=== PATIENT | female | born 1965 | race Caucasian/White ===

== ENCOUNTER 2022-03-13 12:39 | Inpatient (IN) | payer OTHER ==
[2022-03-13 13:37] VITALS: BMI 25.8
[2022-03-13] MEDS ORDERED: ACETAMINOPHEN 325 MG TABLET (FP) PO PRN ×2 (14:06)
[2022-03-13] MEDS ORDERED: IBUPROFEN 400 MG TABLET (FP) PO PRN (14:06)
[2022-03-13] MEDS ORDERED: MAGNESIUM CITRATE 300 ML BOTTLE PO PRN (14:06)
[2022-03-13] MEDS ORDERED: MAGNESIUM HYDROX 2400MG/30ML ORAL SUSPENSION 30 ML CUP PO PRN (14:06)
[2022-03-13] MEDS ORDERED: MAG HYDROX/AL HYDROX/SIMETH 30 ML UNIT-DOSE CUP PO PRN (14:06)
[2022-03-13] MEDS ORDERED: ONDANSETRON *ODT* 4 MG TABLET SL PRN (14:06)
[2022-03-13] MEDS ORDERED: LOPERAMIDE HCL 2 MG CAPSULE PO PRN (14:06)
[2022-03-13] MEDS ORDERED: DICYCLOMINE HCL 10 MG CAPSULE PO PRN (14:06)
[2022-03-13] MEDS ORDERED: IBUPROFEN 600 MG TABLET (FP) PO PRN (14:06)
[2022-03-13] MEDS ORDERED: BISMUTH SUBSALICYLATE 524 MG/30 ML PO PRN (14:06)
[2022-03-13] MEDS ORDERED: BENZOCAINE/MENTHOL (CHLORASEPTIC ) LOZENGE MM PRN (14:06)
[2022-03-13] MEDS: hydrOXYzine PAMOATE 25 MG CAPSULE (FP) PO SCH ×2 (17:58→22:16)
[2022-03-13] MEDS: METHOCARBAMOL 500 MG TABLET PO PRN (17:59)
[2022-03-13] MEDS ORDERED: SERTRALINE HCL 50 MG TABLET (FP) PO ONE ×2 (18:01→22:00)
[2022-03-13] MEDS: traZODone HCL 50 MG TABLET (FP) PO SCH (22:16)
[2022-03-13] MEDS: MELATONIN 5 MG TABLETS PO SCH (22:16)
[2022-03-13] MEDS: THIAMINE HCL 100 MG TABLET (FP) PO SCH (22:17)
[2022-03-14] MEDS: hydrOXYzine PAMOATE 25 MG CAPSULE (FP) PO SCH ×5 (06:53→22:22)
[2022-03-14] MEDS ORDERED: chlordiazePOXIDE HCL 25 MG CAPSULE PO PRN (10:11)
[2022-03-14] MEDS: SERTRALINE HCL 50 MG TABLET (FP) PO SCH (10:25)
[2022-03-14] MEDS: PRENATAL VITAMINS W/ FOLIC ACID TABLET (FP) PO SCH (10:25)
[2022-03-14] MEDS: chlordiazePOXIDE HCL 25 MG CAPSULE PO SCH ×3 (10:26→22:22)
[2022-03-14] MEDS: NICOTINE 10 MG CARTRIDGE (INHALER) IH PRN (10:29)
[2022-03-14 10:44] LABS: HEMATOCRIT 40.8 % (32.4-45.2); HEMOGLOBIN 13.8 GM/dL (10.7-15.3); MCH 32.9 pg (25.7-33.7); MCHC 33.7 g/dl (32.0-36.0); MEAN CELL VOLUME 97.7 fl (80-96); MEAN PLT VOLUME 9.5 fl (7.5-11.1); PLATELET COUNT 231 10^3/uL (134-434); RBC 4.18 M/mm3 (3.60-5.2); RDW 14.2 % (11.6-15.6); WHITE BLOOD COUNT 6.2 K/mm3 (4.0-10.0)
[2022-03-14 10:47] LABS: ALBUMIN 4.4 g/dl (3.4-5.0); BLOOD UREA NITROGEN 13.5 mg/dL (7-18); CALCIUM 9.1 mg/dL (8.5-10.1)
[2022-03-14 10:51] LABS: BILIRUBIN,TOTAL 0.3 mg/dL (0.2-1); TOT PROT 7.5 g/dl (6.4-8.2)
[2022-03-14] MEDS ORDERED: PATIENT,S OWN MED:ALBUTEROL SO4 HFA INHALER IH PRN (14:43)
[2022-03-14] MEDS: ESTRADIOL TP SCH (15:05)
[2022-03-14] MEDS: traZODone HCL 50 MG TABLET (FP) PO SCH (22:22)
[2022-03-14] MEDS: traZODone HCL 100 MG TABLET (FP) PO SCH (22:22)
[2022-03-14] MEDS: MELATONIN 5 MG TABLETS PO SCH ×2 (22:22→22:28)
[2022-03-14] MEDS: THIAMINE HCL 100 MG TABLET (FP) PO SCH (22:22)
[2022-03-15] MEDS: chlordiazePOXIDE HCL 25 MG CAPSULE PO SCH ×4 (05:43→22:29)
[2022-03-15] MEDS: hydrOXYzine PAMOATE 25 MG CAPSULE (FP) PO SCH ×5 (05:43→22:30)
[2022-03-15] MEDS: PRENATAL VITAMINS W/ FOLIC ACID TABLET (FP) PO SCH (10:49)
[2022-03-15] MEDS: METHOCARBAMOL 500 MG TABLET PO PRN (10:52)
[2022-03-15] MEDS: SERTRALINE HCL 50 MG TABLET (FP) PO SCH (10:52)
[2022-03-15] MEDS: traZODone HCL 50 MG TABLET (FP) PO SCH (22:28)
[2022-03-15] MEDS: traZODone HCL 100 MG TABLET (FP) PO SCH (22:28)
[2022-03-15] MEDS: MELATONIN 5 MG TABLETS PO SCH (22:30)
[2022-03-15] MEDS: THIAMINE HCL 100 MG TABLET (FP) PO SCH (22:30)
[2022-03-16] MEDS: hydrOXYzine PAMOATE 25 MG CAPSULE (FP) PO SCH ×5 (06:10→22:11)
[2022-03-16] MEDS: chlordiazePOXIDE HCL 25 MG CAPSULE PO SCH ×4 (06:10→22:12)
[2022-03-16] MEDS: METHOCARBAMOL 500 MG TABLET PO PRN (10:16)
[2022-03-16] MEDS: SERTRALINE HCL 50 MG TABLET (FP) PO SCH (10:16)
[2022-03-16] MEDS: PRENATAL VITAMINS W/ FOLIC ACID TABLET (FP) PO SCH (10:16)
[2022-03-16] MEDS: NICOTINE 10 MG CARTRIDGE (INHALER) IH PRN (18:18)
[2022-03-16] MEDS: traZODone HCL 100 MG TABLET (FP) PO SCH (22:11)
[2022-03-16] MEDS: THIAMINE HCL 100 MG TABLET (FP) PO SCH (22:11)
[2022-03-16] MEDS: traZODone HCL 50 MG TABLET (FP) PO SCH (22:11)
[2022-03-17] MEDS ORDERED: chlordiazePOXIDE HCL 10 MG CAPSULE PO PRN
[2022-03-17] MEDS: MELATONIN 5 MG TABLETS PO SCH ×2 (00:19→22:24)
[2022-03-17] MEDS: hydrOXYzine PAMOATE 25 MG CAPSULE (FP) PO SCH ×5 (05:41→22:24)
[2022-03-17] MEDS: chlordiazePOXIDE HCL 10 MG CAPSULE PO SCH ×4 (05:42→22:24)
[2022-03-17] MEDS: METHOCARBAMOL 500 MG TABLET PO PRN (07:38)
[2022-03-17] MEDS: PRENATAL VITAMINS W/ FOLIC ACID TABLET (FP) PO SCH (10:17)
[2022-03-17] MEDS: SERTRALINE HCL 50 MG TABLET (FP) PO SCH (10:17)
[2022-03-17] MEDS: traZODone HCL 100 MG TABLET (FP) PO SCH (22:24)
[2022-03-17] MEDS: traZODone HCL 50 MG TABLET (FP) PO SCH (22:24)
[2022-03-17] MEDS: THIAMINE HCL 100 MG TABLET (FP) PO SCH (22:24)
[2022-03-18] MEDS ORDERED: chlordiazePOXIDE HCL 10 MG CAPSULE PO SCH (05:00)
[2022-03-18] MEDS: hydrOXYzine PAMOATE 25 MG CAPSULE (FP) PO SCH ×2 (05:49→09:46)
[2022-03-18 09:00] VITALS: BP 102/73; PULSE 65; TEMP 97.5
[2022-03-18] MEDS: SERTRALINE HCL 50 MG TABLET (FP) PO SCH (09:46)
[2022-03-18] MEDS: PRENATAL VITAMINS W/ FOLIC ACID TABLET (FP) PO SCH (09:46)
[2022-03-18] MEDS: ESTRADIOL TP SCH (10:32)
[2022-03-19] MEDS ORDERED: chlordiazePOXIDE HCL 10 MG CAPSULE PO ONE (05:00)
== END 2022-03-18 10:25 | disposition home or self-care (01) | DRG 774 ==
LOC: YASAS 12:39 → Y6N 15:43
PROVIDERS: ADMIT Allergy & Immunology; ATTEND Surgery
PROC: HZ2ZZZZ Detoxification Services for Substance Abuse Treatment (ICD-10-PCS; principal; 2022-03-13)
DX: F10.230 Alcohol dependence with withdrawal, uncomplicated (principal); F13.230 Sedative, hypnotic or anxiolytic dependence with withdrawal, uncomplicated; F14.20 Cocaine dependence, uncomplicated; F17.213 Nicotine dependence, cigarettes, with withdrawal; F34.1 Dysthymic disorder; J43.9 Emphysema, unspecified; Z90.710 Acquired absence of both cervix and uterus; Z88.8 Allergy status to other drugs, medicaments and biological substances
CPT/HCPCS: 36415; 71046-TC-FY; 80053; 81025; 82962; 85027; 86780; 93005; 93010; C9803-CS; U0003; U0005

== ENCOUNTER 2023-11-05 14:38 | Inpatient (IN) | payer OTHER ==
[2023-11-05 15:20] VITALS: BMI 28.3
[2023-11-05] MEDS ORDERED: ALBUTEROL SO4 HFA INHALER IH PRN (17:21)
[2023-11-05] MEDS ORDERED: P-EPHED 60MG/TRIPROLIDI 2.5MG TABLET PO PRN (17:31)
[2023-11-05] MEDS ORDERED: DICYCLOMINE HCL 10 MG CAPSULE PO PRN (17:31)
[2023-11-05] MEDS ORDERED: BENZONATATE 200 MG CAPSULE PO PRN (17:31)
[2023-11-05] MEDS ORDERED: guaiFENesin 600 MG TABLET.ER (FP) PO PRN (17:31)
[2023-11-05] MEDS ORDERED: ONDANSETRON *ODT* 4 MG TABLET SL PRN (17:31)
[2023-11-05] MEDS ORDERED: BENZOCAINE/MENTHOL (CHLORASEPTIC ) LOZENGE MM PRN (17:31)
[2023-11-05] MEDS ORDERED: POLYETHYLENE GLYCOL (HEALTHYLAX) 3350 17 GM PACKET PO PRN (17:31)
[2023-11-05] MEDS ORDERED: MAGNESIUM HYDROX 2400MG/30ML ORAL SUSPENSION 30 ML CUP PO PRN (17:31)
[2023-11-05] MEDS ORDERED: NICOTINE POLACRILEX 2 MG GUM BUC PRN (17:31)
[2023-11-05] MEDS ORDERED: NICOTINE POLACRILEX 2 MG LOZENGE BC PRN (17:31)
[2023-11-05] MEDS ORDERED: chlordiazePOXIDE HCL 25 MG CAPSULE ONE (17:51)
[2023-11-05] MEDS: chlordiazePOXIDE HCL 25 MG CAPSULE PO SCH (17:53)
[2023-11-05] MEDS: chlordiazePOXIDE HCL 25 MG CAPSULE PO PRN (19:40)
[2023-11-05] MEDS: METHOCARBAMOL 500 MG TABLET PO PRN (20:22)
[2023-11-05] MEDS: MELATONIN 5 MG TABLETS PO SCH (22:19)
[2023-11-05] MEDS: THIAMINE HCL 100 MG TABLET (FP) PO SCH (22:20)
[2023-11-06] MEDS: PRENATAL VITAMINS W/ FOLIC ACID TABLET (FP) PO SCH (10:20)
[2023-11-06 10:37] LABS: HEMATOCRIT 37.6 % (32.4-45.2); HEMOGLOBIN 13.1 GM/dL (10.7-15.3); MCH 33.6 pg (25.7-33.7); MCHC 34.9 g/dl (32.0-36.0); MEAN CELL VOLUME 96.3 fl (80-96); MEAN PLT VOLUME 9.1 fl (7.5-11.1); PLATELET COUNT 179 10^3/uL (134-434); RBC 3.91 M/mm3 (3.60-5.2); RDW 14.4 % (11.6-15.6); WHITE BLOOD COUNT 6.3 K/mm3 (4.0-10.0)
[2023-11-06 10:44] LABS: POTASSIUM 3.7 mmol/L (3.5-5.1)
[2023-11-06 10:51] LABS: CALCIUM 9.4 mg/dL (8.5-10.1)
[2023-11-06 10:52] LABS: BLOOD UREA NITROGEN 15.6 mg/dL (7-18)
[2023-11-06 10:54] LABS: CREATININE 0.9 mg/dL (0.55-1.3)
[2023-11-06 10:55] LABS: BILIRUBIN,TOTAL 0.4 mg/dL (0.2-1)
[2023-11-06 10:56] LABS: TOT PROT 6.8 g/dl (6.4-8.2)
[2023-11-06] MEDS: SERTRALINE HCL 50 MG TABLET (FP) PO SCH (15:04)
[2023-11-06] MEDS: LOPERAMIDE HCL 2 MG CAPSULE PO PRN (16:48)
[2023-11-06] MEDS: hydrOXYzine PAMOATE 25 MG CAPSULE (FP) PO PRN (16:49)
[2023-11-06] MEDS: ACETAMINOPHEN 325 MG TABLET (FP) PO PRN (16:49)
[2023-11-06] MEDS: traZODone HCL 100 MG TABLET (FP) PO SCH (22:47)
[2023-11-07] MEDS: BISMUTH SUBSALICYLATE 524 MG/30 ML PO PRN (06:08)
[2023-11-07] MEDS: chlordiazePOXIDE HCL 25 MG CAPSULE PO SCH (06:24)
[2023-11-07] MEDS: IBUPROFEN 400 MG TABLET (FP) PO PRN (17:42)
[2023-11-08] MEDS: chlordiazePOXIDE HCL 10 MG CAPSULE PO SCH (06:00)
[2023-11-08] MEDS: MAG HYDROX/AL HYDROX/SIMETH 30 ML UNIT-DOSE CUP PO PRN (13:44)
[2023-11-08] MEDS: chlordiazePOXIDE HCL 10 MG CAPSULE PO PRN (14:15)
[2023-11-09] MEDS: chlordiazePOXIDE HCL 10 MG CAPSULE PO SCH (05:33)
[2023-11-09 06:51] VITALS: RESP 18
[2023-11-09 13:17] VITALS: TEMP 98
[2023-11-09 13:19] VITALS: BP 111/72; PULSE 87
[2023-11-10 00:06] LABS: FIBROSIS SCORE. 0.09 (0.00-0.21); HCV ALPHA 2 MACRO CHART 151 mg/dL (110-276); NECRO.INFLAM ACT.SCORE 0.05 (0.00-0.17); NECROINFLAM. ACTIVITY GRADE A0-No activity (.)
[2023-11-10] MEDS ORDERED: chlordiazePOXIDE HCL 10 MG CAPSULE PO ONE (05:00)
== END 2023-11-09 14:45 | disposition home or self-care (01) | DRG 897 ==
LOC: YASAS 14:38 → Y6N 17:47
PROVIDERS: ADMIT Allergy & Immunology; ATTEND Surgery
PROC: HZ2ZZZZ Detoxification Services for Substance Abuse Treatment (ICD-10-PCS; principal; 2023-11-05)
DX: F10.230 Alcohol dependence with withdrawal, uncomplicated (principal); F14.20 Cocaine dependence, uncomplicated; F19.280 Other psychoactive substance dependence with psychoactive substance-induced anxiety disorder; F12.20 Cannabis dependence, uncomplicated; F17.210 Nicotine dependence, cigarettes, uncomplicated; F19.24 Other psychoactive substance dependence with psychoactive substance-induced mood disorder; F41.9 Anxiety disorder, unspecified; F32.A Depression, unspecified; J43.9 Emphysema, unspecified; J45.20 Mild intermittent asthma, uncomplicated; B18.2 Chronic viral hepatitis C; R73.9 Hyperglycemia, unspecified; Z62.810 Personal history of physical and sexual abuse in childhood; Z91.410 Personal history of adult physical and sexual abuse; Z63.0 Problems in relationship with spouse or partner; Z63.8 Other specified problems related to primary support group; Z88.8 Allergy status to other drugs, medicaments and biological substances
CPT/HCPCS: 36415; 71045-TC-FY; 80053; 82172; 82977; 83010; 83883; 84460; 85027; 86780; 87635; 93005; 93010